=== PATIENT | male | born 1980 | race Caucasian/White ===

== ENCOUNTER 2017-04-03 13:59 | Emergency (ER) | payer OTHER ==
[~2017-04-03] VITALS: Ht 177.8 cm; Wt 72.6 kg
[~2017-04-03 13:59] MED LIST: AMIT10 PO; Ambien5 MG PO; CEPH500 PO; CODACE30 PO; CRUTCH2 USE; CRUTCH3 USE; CYCL10 PO; Cleocin HCl300 MG PO; DIPH50 PO; ERYT.5TO RIGHTEYE; ESCI10; HYDACE5 PO; IBUP200 PO; IBUP600 PO; IBUP800 PO; IBUPROFEN; KETO10 PO; LAMO25 PO; LAMO5 PO; LORA1 PO; Lamictal25 MG PO; NAPR500 PO; NAPR550 PO; ONDA4 PO; ONDA4ODT MM; OXYACE5T PO; PENVK500 PO; PHENY100ER; PHENY30ER PO; PRED10 PO; PROM25 PO; Pepcid40 MG PO; RXONDA4ODT MM; RXOXYACE PO; SULTRIDS PO; TOBR.3OPSO OP; Zofran4 MG PO; [UNRECOGNIZED DRUG - REMARK]
[2017-04-03] MEDS ORDERED: Keflex500 MG PO (14:49)
[2017-04-04] MEDS ORDERED: Bactrim Ds Tab1 EACH PO (15:45)
[2018-01-20] MEDS ORDERED: KETO10 PO (10:37)
[2018-01-20] MEDS ORDERED: Augmentin 875-1 EACH PO (10:37)
== END 2017-04-03 15:00 | disposition home or self-care (01) ==
LOC: ER 13:59
DX: M25.531 Pain in right wrist (principal); F17.220 Nicotine dependence, chewing tobacco, uncomplicated
CPT/HCPCS: 73080; 73110; 90471; 90714; 99283

== ENCOUNTER 2017-04-04 15:29 | Emergency (ER) | payer OTHER ==
[~2017-04-04] VITALS: Ht 177.8 cm; Wt 72.6 kg
[~2017-04-04 15:29] MED LIST changes: +Keflex500 MG PO
[2017-04-04] MEDS ORDERED: Bactrim Ds Tab1 EACH PO (15:45)
[2018-01-20] MEDS ORDERED: KETO10 PO (10:37)
[2018-01-20] MEDS ORDERED: Augmentin 875-1 EACH PO (10:37)
== END 2017-04-04 15:53 ==
LOC: ER 15:29
DX: S01.01XA Laceration without foreign body of scalp, initial encounter (principal); Z86.14 Personal history of Methicillin resistant Staphylococcus aureus infection; W26.8XXA Contact with other sharp object(s), not elsewhere classified, initial encounter
CPT/HCPCS: 12002; 99283

== ENCOUNTER 2017-11-13 15:14 | Emergency (ER) | payer OTHER ==
[~2017-11-13] VITALS: Ht 177.8 cm; Wt 77.1 kg
[~2017-11-13 15:14] MED LIST changes: +Bactrim Ds Tab1 EACH PO
[2017-11-13] MEDS ORDERED: BUSP15 PO ×2 (15:56→16:41)
[2017-11-13] MEDS ORDERED: MIRT30 PO ×2 (15:57→16:41)
== END 2017-11-13 16:47 | disposition home or self-care (01) ==
LOC: ER 15:14
DX: Z76.0 Encounter for issue of repeat prescription (principal); F17.200 Nicotine dependence, unspecified, uncomplicated; Z79.899 Other long term (current) drug therapy
CPT/HCPCS: 99281

== ENCOUNTER 2018-02-18 17:07 | Emergency (ER) | payer OTHER ==
[~2018-02-18] VITALS: Ht 177.8 cm; Wt 86.2 kg
[~2018-02-18 17:07] MED LIST changes: +Augmentin 875-1 EACH PO; +BUSP15 PO; +MIRT30 PO
[2018-02-18] MEDS ORDERED: Cleocin HCl300 MG PO (17:47)
[2018-02-18] MEDS ORDERED: IBUP800 PO (17:58)
== END 2018-02-18 18:05 | disposition home or self-care (01) ==
LOC: ER 17:07
DX: K04.7 Periapical abscess without sinus (principal); F17.220 Nicotine dependence, chewing tobacco, uncomplicated
CPT/HCPCS: 96372; 99282-25; J1885

== ENCOUNTER 2018-05-09 15:50 | Emergency (ER) | payer OTHER ==
[~2018-05-09] VITALS: Ht 177.8 cm; Wt 95.2 kg
[2018-05-09] MEDS ORDERED: ATOM60 PO (16:15)
[2018-05-09] MEDS ORDERED: PAROEX473 ML MM (17:10)
[2018-05-09] MEDS ORDERED: IBUP800 PO (17:10)
[2018-05-09] MEDS ORDERED: Cleocin HCl150 MG PO (17:10)
== END 2018-05-09 17:25 | disposition home or self-care (01) ==
LOC: ER 15:50
DX: K04.7 Periapical abscess without sinus (principal); Z88.5 Allergy status to narcotic agent; Z79.899 Other long term (current) drug therapy; F17.220 Nicotine dependence, chewing tobacco, uncomplicated
CPT/HCPCS: 99282

== ENCOUNTER 2018-05-14 15:44 | Emergency (ER) | payer OTHER ==
[~2018-05-14] VITALS: Ht 177.8 cm; Wt 95.2 kg
[~2018-05-14 15:44] MED LIST changes: +ATOM60 PO; +Cleocin HCl150 MG PO; +PAROEX473 ML MM
[2018-05-14] MEDS ORDERED: ATOM25 PO (16:02)
[2018-05-14 16:31] LABS: BASOPHILS ABSOLUTE AUTO 0.06 K/mm3 (0.00-0.23); BASOPHILS PERCENT AUTO 1 % (0-2); EOSINOPHILS ABSOLUTE AUTO 0.19 K/mm3 (0.00-0.68); EOSINOPHILS PERCENT AUTO 3 % (0-6); Hematocrit 40.6 % (37.0-53.0); Hemoglobin 13.2 g/dL (13.5-17.5); IMMATURE GRAN ABSOLUTE AUTO 0.02 K/mm3 (0.00-0.10); IMMATURE GRAN PERCENT AUTO 0 % (0-1); LYMPHOCYTES ABSOLUTE AUTO 1.89 K/mm3 (0.84-5.20); LYMPHOCYTES PERCENT AUTO 26 % (21-46); MONOCYTES ABSOLUTE AUTO 0.59 K/mm3 (0.16-1.47); MONOCYTES PERCENT AUTO 8 % (4-13); Mean Corpuscular HGB 27.7 pg (26.0-34.0); Mean Corpuscular HGB Conc 32.5 g/dL (31.5-36.5); Mean Corpuscular Volume 85 fL (80-100); Mean Platelet Volume 9.5 fL (9.1-12.4); NEUTROPHILS ABSOLUTE AUTO 4.42 K/mm3 (1.96-9.15); NEUTROPHILS PERCENT AUTO 62 % (41-73); Platelet Count 284 K/mm3 (150-400); RDW Coefficient Variation 12.8 % (11.7-14.2); RDW Standard Deviation 39.6 fL (35.1-46.3); Red Blood Cell Count 4.76 M/mm3 (4.30-5.90); White Blood Cell Count 7.17 K/mm3 (4.00-11.30)
[2018-05-14 16:35] LABS: Alanine Aminotransfer (ALT/SGP 23 U/L (12-78); Albumin, Blood 3.9 g/dL (3.4-5.0); Albumin/Globulin Ratio 1.2 (0.8-1.8); Alk Phos 75 U/L (50-136); Anion Gap 5 mmol/L (6-16); Aspartate Aminotrans (AST/SGOT 28 U/L (12-37); Bilirubin, Total 0.4 mg/dL (0.1-1.0); Blood Urea Nitrogen 24 mg/dL (8-24); Bun/Creatinine Ratio 21.2 (12.0-20.0); CO2, Blood 31 mmol/L (21-32); Calcium, Blood 8.9 mg/dL (8.5-10.1); Chloride, Blood 107 mmol/L (98-108); Creatinine, Blood 1.13 mg/dL (0.60-1.20); Globulin, Blood 3.2 g/dL (2.2-4.0); Glomerular Filtration Rate >60 (60-); Glucose, Blood 91 mg/dL (70-99); Potassium, Blood 3.3 mmol/L (3.5-5.5); Sodium, Blood 143 mmol/L (136-145); Total Protein, Blood 7.1 g/dL (6.4-8.2)
[2018-05-14] MEDS ORDERED: Flagyl500 MG PO (20:11)
[2018-05-14] MEDS ORDERED: Augmentin 875-1 EACH PO (20:11)
== END 2018-05-14 21:16 | disposition home or self-care (01) ==
LOC: ER 15:44
PROVIDERS: Physician Assistant
DX: K04.7 Periapical abscess without sinus (principal); F17.220 Nicotine dependence, chewing tobacco, uncomplicated
CPT/HCPCS: 36415; 70487; 80053; 85025; 96365-59; 99283-25; A9270-GY; J0295; J2543; Q9967

== ENCOUNTER 2018-10-30 22:20 | Emergency (ER) | payer OTHER ==
[~2018-10-30] VITALS: Ht 177.8 cm; Wt 97.1 kg
[~2018-10-30 22:20] MED LIST changes: +ATOM25 PO; +Flagyl500 MG PO
[2018-10-30] MEDS ORDERED: CEPH500 PO (23:48)
== END 2018-10-31 00:39 | disposition home or self-care (01) ==
LOC: ER 22:20
DX: L03.115 Cellulitis of right lower limb (principal); F84.0 Autistic disorder; F17.220 Nicotine dependence, chewing tobacco, uncomplicated; Z88.5 Allergy status to narcotic agent
CPT/HCPCS: 99282

== ENCOUNTER 2019-04-06 20:24 | Emergency (ER) | payer OTHER ==
[~2019-04-06] VITALS: Ht 177.8 cm; Wt 95.2 kg
== END 2019-04-07 00:20 | disposition home or self-care (01) ==
LOC: ER 20:24
DX: J06.9 Acute upper respiratory infection, unspecified (principal); F17.200 Nicotine dependence, unspecified, uncomplicated
CPT/HCPCS: 71046; 99283-25

== ENCOUNTER 2020-02-26 10:32 | Emergency (ER) | payer OTHER ==
[~2020-02-26] VITALS: Ht 177.8 cm; Wt 97.5 kg
[2020-02-26] MEDS ORDERED: CLIN300 PO (11:41)
== END 2020-02-26 11:57 | disposition home or self-care (01) ==
LOC: ER 10:32
DX: K08.89 Other specified disorders of teeth and supporting structures (principal); F84.0 Autistic disorder; G89.29 Other chronic pain
CPT/HCPCS: 99283

== ENCOUNTER 2021-07-23 15:14 | Emergency (ER) | payer OTHER ==
[~2021-07-23] VITALS: Ht 177.8 cm; Wt 85.7 kg
[~2021-07-23 15:14] MED LIST changes: +CLIN300 PO
== END 2021-07-23 17:20 | disposition home or self-care (01) ==
LOC: ER 15:14
DX: S00.83XA Contusion of other part of head, initial encounter (principal); F17.210 Nicotine dependence, cigarettes, uncomplicated; X83.8XXA Intentional self-harm by other specified means, initial encounter
CPT/HCPCS: 99282

== ENCOUNTER 2021-10-29 10:31 | Emergency (ER) | payer OTHER ==
[~2021-10-29] VITALS: Ht 177.8 cm; Wt 81.7 kg
[2021-10-29] MEDS ORDERED: ACET500 PO (13:24)
[2021-10-29] MEDS ORDERED: IBUP400 PO (13:24)
[2021-10-29] MEDS ORDERED: OXYC5 PO (13:24)
== END 2021-10-29 13:27 | disposition home or self-care (01) ==
LOC: ER 10:31
DX: K08.89 Other specified disorders of teeth and supporting structures (principal); F17.210 Nicotine dependence, cigarettes, uncomplicated; Z88.5 Allergy status to narcotic agent; Z98.890 Other specified postprocedural states
CPT/HCPCS: A9270; J1885

== ENCOUNTER 2023-03-30 13:06 | Emergency (ER) | payer OTHER ==
[~2023-03-30] VITALS: Ht 177.8 cm; Wt 104.3 kg
[~2023-03-30 13:06] MED LIST changes: +ACET500 PO; +IBUP400 PO; +OXYC5 PO
[2023-03-30 14:04] LABS: BASOPHILS ABSOLUTE AUTO 0.09 K/mm3 (0.00-0.23); BASOPHILS PERCENT AUTO 1 % (0-2); EOSINOPHILS ABSOLUTE AUTO 0.32 K/mm3 (0.00-0.68); EOSINOPHILS PERCENT AUTO 3 % (0-6); Hematocrit 46.5 % (37.0-53.0); Hemoglobin 15.4 g/dL (13.5-17.5); IMMATURE GRAN ABSOLUTE AUTO 0.07 K/mm3 (0.00-0.10); IMMATURE GRAN PERCENT AUTO 1 % (0-1); LYMPHOCYTES ABSOLUTE AUTO 2.19 K/mm3 (0.84-5.20); LYMPHOCYTES PERCENT AUTO 20 % (21-46); MONOCYTES ABSOLUTE AUTO 0.72 K/mm3 (0.16-1.47); MONOCYTES PERCENT AUTO 6 % (4-13); Mean Corpuscular HGB 27.7 pg (26.0-34.0); Mean Corpuscular HGB Conc 33.1 g/dL (31.5-36.5); Mean Corpuscular Volume 84 fL (80-100); NEUTROPHILS ABSOLUTE AUTO 7.78 K/mm3 (1.96-9.15); NEUTROPHILS PERCENT AUTO 70 % (41-73); Platelet Count 316 K/mm3 (150-400); RDW Standard Deviation 39.7 fL (35.1-46.3); Red Blood Cell Count 5.56 M/mm3 (4.30-5.90); White Blood Cell Count 11.17 K/mm3 (4.00-11.30)
[2023-03-30 14:23] LABS: Bilirubin, Total 0.6 mg/dL (0.1-1.0); Bun/Creatinine Ratio 14.3 (12.0-20.0); Calcium, Blood 9.4 mg/dL (8.5-10.1); Creatinine, Blood 0.91 mg/dL (0.60-1.20); Globulin, Blood 4.1 g/dL (2.2-4.0); Total Protein, Blood 8.1 g/dL (6.4-8.2)
[2023-03-30] MEDS ORDERED: Ketorolac Tromethamine 30mg Vial IV ONE (16:40)
[2023-03-30] MEDS ORDERED: Trimethoprim/Sulfamethoxazole DS Tab PO ONE (16:40)
[2023-03-30] MEDS ORDERED: Clindamycin 600mg in D5W 50 ML IV ONE (16:40)
[2023-03-30] MEDS ORDERED: Bactrim Ds Tab1 EACH PO (16:41)
[2023-03-30] MEDS ORDERED: Cleocin HCl150 MG PO ×2 (16:41→17:41)
[2023-03-30 17:43] VITALS: BP 112/68
[2023-03-31] MEDS ORDERED: Cleocin HCl150 MG PO (08:44)
== END 2023-03-30 17:44 | disposition home or self-care (01) ==
LOC: ER 13:06
PROVIDERS: Student in an Organized Health Care Education/Training Program
DX: L03.211 Cellulitis of face (principal); Z86.14 Personal history of Methicillin resistant Staphylococcus aureus infection; F17.210 Nicotine dependence, cigarettes, uncomplicated; F17.290 Nicotine dependence, other tobacco product, uncomplicated; F43.10 Post-traumatic stress disorder, unspecified; Z88.5 Allergy status to narcotic agent
CPT/HCPCS: 80053; 85025; 96365; 96375; 99283-25; A9270; J1885

== ENCOUNTER 2023-03-31 14:06 | Emergency (ER) | payer OTHER ==
[~2023-03-31] VITALS: Ht 177.8 cm; Wt 104.3 kg
[2023-03-31 14:57] LABS: BASOPHILS ABSOLUTE AUTO 0.08 K/mm3 (0.00-0.23); BASOPHILS PERCENT AUTO 1 % (0-2); EOSINOPHILS ABSOLUTE AUTO 0.34 K/mm3 (0.00-0.68); EOSINOPHILS PERCENT AUTO 3 % (0-6); Hematocrit 44.3 % (37.0-53.0); Hemoglobin 14.5 g/dL (13.5-17.5); IMMATURE GRAN ABSOLUTE AUTO 0.07 K/mm3 (0.00-0.10); IMMATURE GRAN PERCENT AUTO 1 % (0-1); LYMPHOCYTES ABSOLUTE AUTO 2.45 K/mm3 (0.84-5.20); LYMPHOCYTES PERCENT AUTO 20 % (21-46); MONOCYTES ABSOLUTE AUTO 0.78 K/mm3 (0.16-1.47); MONOCYTES PERCENT AUTO 7 % (4-13); Mean Corpuscular HGB 27.7 pg (26.0-34.0); Mean Corpuscular HGB Conc 32.7 g/dL (31.5-36.5); Mean Corpuscular Volume 85 fL (80-100); Mean Platelet Volume 9.1 fL (9.1-12.4); NEUTROPHILS ABSOLUTE AUTO 8.35 K/mm3 (1.96-9.15); NEUTROPHILS PERCENT AUTO 69 % (41-73); Platelet Count 303 K/mm3 (150-400); RDW Coefficient Variation 13.1 % (11.7-14.2); RDW Standard Deviation 40.6 fL (35.1-46.3); Red Blood Cell Count 5.24 M/mm3 (4.30-5.90); White Blood Cell Count 12.07 K/mm3 (4.00-11.30)
[2023-03-31 15:22] LABS: Albumin, Blood 3.6 g/dL (3.4-5.0); Albumin/Globulin Ratio 0.9 (0.8-1.8); Bilirubin, Total 0.5 mg/dL (0.1-1.0); Bun/Creatinine Ratio 10.4 (12.0-20.0); Calcium, Blood 9.1 mg/dL (8.5-10.1); Creatinine, Blood 0.97 mg/dL (0.60-1.20); Globulin, Blood 4.1 g/dL (2.2-4.0); Total Protein, Blood 7.7 g/dL (6.4-8.2)
[2023-03-31 17:45] VITALS: BP 122/87
== END 2023-03-31 18:05 | disposition home or self-care (01) ==
LOC: ER 14:06
PROVIDERS: Physician Assistant
DX: L03.211 Cellulitis of face (principal); F84.0 Autistic disorder; F43.10 Post-traumatic stress disorder, unspecified; F17.210 Nicotine dependence, cigarettes, uncomplicated; F17.290 Nicotine dependence, other tobacco product, uncomplicated; Z88.5 Allergy status to narcotic agent
CPT/HCPCS: 70487; 80053; 85025; 99284-25; Q9967

== ENCOUNTER 2023-04-04 02:03 | Emergency (ER) | payer OTHER ==
[~2023-04-04] VITALS: Ht 177.8 cm; Wt 104.3 kg
[2023-04-04] MEDS ORDERED: Ketorolac Tromethamine 30mg Vial IV ONE (03:30)
[2023-04-04] MEDS ORDERED: Dexamethasone Sod Phos 10 MG/ML 1ML VIAL IV ONE (03:30)
[2023-04-04 04:10] LABS: BASOPHILS ABSOLUTE AUTO 0.13 K/mm3 (0.00-0.23); BASOPHILS PERCENT AUTO 1 % (0-2); EOSINOPHILS ABSOLUTE AUTO 0.22 K/mm3 (0.00-0.68); EOSINOPHILS PERCENT AUTO 2 % (0-6); Hematocrit 40.7 % (37.0-53.0); Hemoglobin 13.7 g/dL (13.5-17.5); IMMATURE GRAN ABSOLUTE AUTO 0.05 K/mm3 (0.00-0.10); IMMATURE GRAN PERCENT AUTO 1 % (0-1); LYMPHOCYTES ABSOLUTE AUTO 1.94 K/mm3 (0.84-5.20); LYMPHOCYTES PERCENT AUTO 20 % (21-46); MONOCYTES ABSOLUTE AUTO 0.73 K/mm3 (0.16-1.47); MONOCYTES PERCENT AUTO 8 % (4-13); Mean Corpuscular HGB 27.6 pg (26.0-34.0); Mean Corpuscular HGB Conc 33.7 g/dL (31.5-36.5); Mean Corpuscular Volume 82 fL (80-100); Mean Platelet Volume 9.1 fL (9.1-12.4); NEUTROPHILS ABSOLUTE AUTO 6.53 K/mm3 (1.96-9.15); NEUTROPHILS PERCENT AUTO 68 % (41-73); Platelet Count 318 K/mm3 (150-400); RDW Coefficient Variation 12.8 % (11.7-14.2); RDW Standard Deviation 38.3 fL (35.1-46.3); Red Blood Cell Count 4.97 M/mm3 (4.30-5.90)
[2023-04-04 04:29] LABS: Bun/Creatinine Ratio 17.4 (12.0-20.0); Calcium, Blood 9.2 mg/dL (8.5-10.1); Creatinine, Blood 1.09 mg/dL (0.60-1.20); Potassium, Blood 4.2 mmol/L (3.5-5.5)
[2023-04-04 04:48] LABS: Source, Urine Clean Catch
[2023-04-04 04:52] LABS: Bilirubin, Urine Neg (Neg); Blood, Urine Neg (Neg); Glucose Qualitative, Urine Neg (Neg); Ketones, Urine Neg (Neg); Leukocyte Esterase, Urine Neg (Neg); Nitrite, Urine Neg (Neg); Protein, Urine Neg (Neg); Specific Gravity, Urine 1.005 (1.003-1.022); Urobilinogen, Urine NORM (Normal)
[2023-04-04 05:26] LABS: Appearance, Urine Clear (Clear); Color, Urine Pale Yellow (P-Yellow)
[2023-04-04] MEDS ORDERED: NS 1,000 ML IV SCH (06:50)
[2023-04-04] MEDS ORDERED: Nicotine Polacrilex 2 MG Gum PO PRN (10:55)
[2023-04-04] MEDS ORDERED: METPRE4DP PO (11:35)
[2023-04-04] MEDS ORDERED: Robaxin750 MG PO (11:39)
[2023-04-04 11:43] VITALS: BP 101/69
== END 2023-04-04 11:46 | disposition home or self-care (01) ==
LOC: ER 02:03
PROVIDERS: Emergency Medicine
DX: M51.15 Intervertebral disc disorders with radiculopathy, thoracolumbar region (principal); M48.05 Spinal stenosis, thoracolumbar region; F43.10 Post-traumatic stress disorder, unspecified; F17.200 Nicotine dependence, unspecified, uncomplicated; F10.99 Alcohol use, unspecified with unspecified alcohol-induced disorder
CPT/HCPCS: 72131; 72148; 80048; 81003; 85025; 96374; 96375; 99284-25; A9270; J1100; J1885

== ENCOUNTER 2024-09-12 23:31 | Emergency (ER) | payer OTHER ==
[~2024-09-12] VITALS: Ht 177.8 cm; Wt 86.2 kg
[~2024-09-12 23:31] MED LIST changes: +BACTRIM DS TAB1 EAC1 PO; +METPRE4DP PO; +Robaxin750 MG PO
[2024-09-12 23:34] VITALS: BP 128/96
[2024-09-13 00:53] LABS: BASOPHILS ABSOLUTE AUTO 0.08 K/mm3 (0.00-0.23); BASOPHILS PERCENT AUTO 1 % (0-2); EOSINOPHILS ABSOLUTE AUTO 0.11 K/mm3 (0.00-0.68); EOSINOPHILS PERCENT AUTO 1 % (0-6); Hematocrit 42.4 % (37.0-53.0); Hemoglobin 14.2 g/dL (13.5-17.5); IMMATURE GRAN ABSOLUTE AUTO 0.03 K/mm3 (0.00-0.10); IMMATURE GRAN PERCENT AUTO 0 % (0-1); LYMPHOCYTES ABSOLUTE AUTO 2.13 K/mm3 (0.84-5.20); LYMPHOCYTES PERCENT AUTO 24 % (21-46); MONOCYTES ABSOLUTE AUTO 0.57 K/mm3 (0.16-1.47); MONOCYTES PERCENT AUTO 6 % (4-13); Mean Corpuscular HGB Conc 33.5 g/dL (31.5-36.5); Mean Corpuscular Volume 83 fL (80-100); NEUTROPHILS ABSOLUTE AUTO 6.10 K/mm3 (1.96-9.15); NEUTROPHILS PERCENT AUTO 68 % (41-73); NRBC ABSOLUTE 0.00 K/mm3 (0.00-0.02); NRBC Auto 0.0 /100 WBC (0.0-0.2); Platelet Count 354 K/mm3 (150-400); RDW Coefficient Variation 12.9 % (11.7-14.2); RDW Standard Deviation 39.0 fL (35.1-46.3)
[2024-09-13 01:05] LABS: Ethanol (Alcohol), Blood, Med <3 mg/dL; Salicylate <1.7 mg/dL (2.8-20.0)
[2024-09-13 01:06] LABS: Alanine Aminotransfer (ALT/SGP 22 U/L (12-78); Albumin, Blood 4.0 g/dL (3.4-5.0); Albumin/Globulin Ratio 1.1 (0.8-1.8); Anion Gap 9 mmol/L (3-11); Aspartate Aminotrans (AST/SGOT 15 U/L (12-37); Bilirubin, Total 0.3 mg/dL (0.1-1.0); Blood Urea Nitrogen 20 mg/dL (8-24); CO2, Blood 26 mmol/L (21-32); Calcium, Blood 8.8 mg/dL (8.5-10.1); Chloride, Blood 106 mmol/L (98-108); Creatinine, Blood 1.34 mg/dL (0.60-1.20); Globulin, Blood 3.8 g/dL (2.2-4.0); Glucose, Blood 109 mg/dL (70-99); Potassium, Blood 3.7 mmol/L (3.5-5.5); Sodium, Blood 137 mmol/L (136-145); Total Protein, Blood 7.8 g/dL (6.4-8.2)
[2024-09-13 01:09] LABS: Acetaminophen, Random <2.0 ug/mL (10.0-30.0)
[2024-09-13] MEDS ORDERED: ARIP15 PO (09:37)
== END 2024-09-13 11:12 | disposition home or self-care (01) ==
LOC: ER 23:31
PROVIDERS: Emergency Medicine
DX: F15.23 Other stimulant dependence with withdrawal (principal); Z76.0 Encounter for issue of repeat prescription; Z00.8 Encounter for other general examination; G40.909 Epilepsy, unspecified, not intractable, without status epilepticus; F84.0 Autistic disorder; F17.200 Nicotine dependence, unspecified, uncomplicated; Z59.89 Other problems related to housing and economic circumstances
CPT/HCPCS: 80053; 80320; 85025; 93005; 93010; 99284-25; G0480

== ENCOUNTER 2025-01-04 00:55 | Emergency (ER) | payer OTHER ==
[~2025-01-04] VITALS: Ht 177.8 cm; Wt 72.6 kg
[~2025-01-04 00:55] MED LIST changes: +ARIP15 PO
[2025-01-04] MEDS ORDERED: IBUP600 PO (01:48)
[2025-01-04] MEDS ORDERED: ACET500 PO (01:48)
[2025-01-04] MEDS ORDERED: Ketorolac Tromethamine 15mg Vial IM ONE (01:50)
[2025-01-04] MEDS ORDERED: Lidocaine 4% 1 Patch TOP ONE (01:50)
[2025-01-04 01:53] VITALS: BP 114/85
== END 2025-01-04 01:55 | disposition home or self-care (01) ==
LOC: ER 00:55
DX: S46.911A Strain of unspecified muscle, fascia and tendon at shoulder and upper arm level, right arm, initial encounter (principal); F17.200 Nicotine dependence, unspecified, uncomplicated; Z79.899 Other long term (current) drug therapy; X50.0XXA Overexertion from strenuous movement or load, initial encounter
CPT/HCPCS: 96372; 99283-25; A9270; J1885